=== PATIENT | male | born 1990 | race Caucasian/White ===

== ENCOUNTER 2025-10-01 08:19 | Outpatient (CLI) | payer OTHER, SELFPAY | END 2025-10-01 08:20 | disposition home or self-care (01) | LOC: NFLDREF 10-06 19:04 | PROVIDERS: PCP Family Medicine; Visit Provider Family Medicine | DX: Z13.1 Encounter for screening for diabetes mellitus (principal); Z13.6 Encounter for screening for cardiovascular disorders | CPT/HCPCS: 80053; 80061 ==